=== PATIENT | female | born 1955 | race American Indian/Alaskan Native ===

== ENCOUNTER 2019-05-02 09:39 | Outpatient (CLI) | payer BC ==
--- NOTE | 2019-05-02 11:35 | Magnetic Resonance Report ---
MRI CERVICAL SPINE WITHOUT CONTRAST INDICATION / CLINICAL INFORMATION: M43.22 Fusion of spine, cervical region. Left arm pain and numbness, neck pain TECHNIQUE: Multisequence, multiplanar images of the cervical spine were obtained. COMPARISON: None available. FINDINGS: CRANIOCERVICAL JUNCTION:No significant abnormality. ALIGNMENT: No significant abnormality. VERTEBRAE:Normal marrow signal and vertebral body height for age. Anterior fusion changes at C4-5 wit h metal plate and screws generate mild artifact. DISCS: There is diffuse disc desiccation and narrowing. Bony fusion of the C4-5 disc space is suspect ed. VISUALIZED SPINAL CORD: No significant abnormality. [id number] ANALYSIS: C2-3: No significant disc abnormality, spinal canal stenosis, or neural foraminal stenosis. C3-4: There is a moderate broad-based posterior bulging disc which lateralizes to the right side. Mil d facet arthropathy. Mild central canal narrowing measures 7.3 mm in AP dimension. Moderate right reny ral foraminal narrowing is estimated at 50-75%. C4-5: Surgical changes are again noted. There is a right paracentral bony spur projecting posteriorly which abuts the anterior spinal cord. No significant neural foraminal narrowing or central canal seamus rowing C5-6: Moderate bilateral uncovertebral spurring and moderate facet arthropathy are identified. No cody tral canal narrowing. High-grade bilateral neural foraminal narrowing is estimated at greater than 75 %. C6-7: Mild bilateral uncovertebral spurring and mild facet arthropathy are identified. Bilateral neur al foraminal narrowing is estimated at 50%. C7-T1: No significant disc abnormality, spinal canal stenosis, or neural foraminal stenosis. PARASPINAL SOFT TISSUES: No significant abnormality. ADDITIONAL FINDINGS: None. IMPRESSION: Stable appearance of the anterior fusion changes at C4-5. Moderate posterior bulging disc at C3-4 which lateralizes to the right side as described. Moderate to severe bilateral neural foraminal narrowing at C5-6 due to uncovertebral spurring and fac et arthropathy. See above. Signer Name: Devang Marino Jr, MD Signed: 05/02/2019 11:30 AM Workstation Name: [id number]
== END 2019-05-02 09:40 | disposition home or self-care (01) ==
LOC: MRI 09:39
PROVIDERS: ATTEND Internal Medicine
DX: M48.02 Spinal stenosis, cervical region (principal); M46.02 Spinal enthesopathy, cervical region; M43.22 Fusion of spine, cervical region
CPT/HCPCS: 72141